=== PATIENT | female | born 1955 | race Caucasian/White ===

== ENCOUNTER → 2016-04-22 | Outpatient (CLI) | payer BC ==
--- NOTE | 2016-04-22 11:49 | KCIC ---
Bilateral digital diagnostic mammograms with CAD: HISTORY Followup breast nodule. COMPARISON Comparison is made to previous studies dated 04/18/2015 and 04/18/2014. FINDINGS Breast density category C. The skin and nipples show no abnormalities. No abnormal lymph nodes are seen in the axilla. The breast parenchyma shows heterogeneous density. There continues to be a small nodular density in the lower inner quadrant of the left breast posteriorly which has not changed. There are no dominant masses, suspicious calcifications or architectural distortions. Benign appearing calcifications are present. IMPRESSION No definite change in the small nodular density at the 7 o'clock position of the left breast. Ultrasound to follow. BI-RADS category 0: Incomplete. Ultrasound to follow. Mammography is not 100% sensitive in detecting breast cancer. Therefore, a self breast exam and a clinical breast exam are very important. A negative mammogram does not negate a clinically suspicious finding and should not result in a delay in biopsying a clinically suspicious abnormality. Left breast ultrasound: Comparison is made to previous studies dated 04/26/2015 and 10/10/2015. Ultrasound examination of the left breast was performed with attention to the inferior breast. Small hypoechoic nodules consistent with fibrocystic type changes are again seen in the 5 o'clock, 6 o'clock and 7 o'clock positions. These all shows a slight decrease in size. There are no new cystic or solid nodules. No abnormal lymph nodes are seen in the axilla. Impression: Slight decrease in size of the small nodules in the 5 o'clock, 6 o'clock and 7 o'clock positions consistent with fibrocystic changes. Recommend routine mammographic followup. BI-RADS category 2: Probably benign. This study was interpreted with the benefit of Computerized Aided Detection (CAD). This patient's information has been entered into a reminder system for the patient to be notified with the results of this examination and a target date for her next mammograms. Electronically signed by: So Falk MD (Apr 22, 2016 11:47:45)
--- NOTE | 2016-05-14 12:03 | KCIC ---
Bilateral digital diagnostic mammograms with CAD: HISTORY Followup breast nodule. COMPARISON Comparison is made to previous studies dated 04/18/2015 and 04/18/2014. FINDINGS Breast density category C. The skin and nipples show no abnormalities. No abnormal lymph nodes are seen in the axilla. The breast parenchyma shows heterogeneous density. There continues to be a small nodular density in the lower inner quadrant of the left breast posteriorly which has not changed. There are no dominant masses, suspicious calcifications or architectural distortions. Benign appearing calcifications are present. IMPRESSION No definite change in the small nodular density at the 7 o'clock position of the left breast. Ultrasound to follow. BI-RADS category 0: Incomplete. Ultrasound to follow. Mammography is not 100% sensitive in detecting breast cancer. Therefore, a self breast exam and a clinical breast exam are very important. A negative mammogram does not negate a clinically suspicious finding and should not result in a delay in biopsying a clinically suspicious abnormality. Left breast ultrasound: Comparison is made to previous studies dated 04/26/2015 and 10/10/2015. Ultrasound examination of the left breast was performed with attention to the inferior breast. Small hypoechoic nodules consistent with fibrocystic type changes are again seen in the 5 o'clock, 6 o'clock and 7 o'clock positions. These all shows a slight decrease in size. There are no new cystic or solid nodules. No abnormal lymph nodes are seen in the axilla. Impression: Slight decrease in size of the small nodules in the 5 o'clock, 6 o'clock and 7 o 'clock positions consistent with fibrocystic changes. Recommend routine mammographic followup. BI-RADS category 2: Probably benign. This study was interpreted with the benefit of Computerized Aided Detection (CAD ). This patient's information has been entered into a reminder system for the patient to be notified with the results of this examination and a target date for her next mammograms. Electronically signed by: So Falk MD (Apr 22, 2016 11:47:45) [facility]
== END | disposition home or self-care (01) ==
LOC: KCIC MAMMO 10:02
PROVIDERS: ATTEND Physician Assistant Medical
DX: N63 Unspecified lump in breast (principal); R92.8 Other abnormal and inconclusive findings on diagnostic imaging of breast
CPT/HCPCS: 76641; G0204; 77066

== ENCOUNTER → 2017-04-23 | Outpatient (CLI) | payer BC | END | disposition home or self-care (01) | LOC: KCIC MAMMO 08:53 | DX: Z12.31 Encounter for screening mammogram for malignant neoplasm of breast (principal) | CPT/HCPCS: 77063; 77067 ==

== ENCOUNTER → 2017-09-22 | Outpatient (CLI) | payer BC | END | disposition home or self-care (01) | LOC: KCIC 08:15 | DX: M25.521 Pain in right elbow (principal) | CPT/HCPCS: 73080 ==

== ENCOUNTER → 2018-04-27 | Outpatient (CLI) | payer BC ==
--- NOTE | 2018-04-27 16:25 | KCIC ---
Bilateral digital screening mammograms with 3-D tomosynthesis: Reason for examination: Routine screening. Comparison is made to previous studies dated back to 04/18/2015. Bilateral mammograms in CC and oblique projections were obtained with 2-D imaging and 3-D tomosynthesis imaging on a Siemens Inspiration unit and reviewed on the workstation. Interpretation was made with the benefit of CAD. The skin and nipples show no abnormalities. No abnormal axillary lymph nodes are seen. The breast parenchyma is extremely dense. (Breast density: Category D.) There continues to be a circumscribed nodule medially in the 8:00 position posteriorly in the left breast which is stable. There appears however to be a nodule developing in the left breast posterior laterally at approximately the 4:00 C position which appears to measure at least 7 mm in size. In the right breast, there is a 1 cm nodular density which appears to lie approximately 12 cm posterior to the nipple at the 10:00 C position. There also appears to be nodular densities seen posterior laterally in the right breast on cc view approximately 8.2 cm posterior to the nipple measuring approximately 1 cm in size. There are no other dominant masses, suspicious calcifications or architectural distortion evident. Benign calcifications are present. Impression: Small nodular densities developing at approximately the 4:00 position posteriorly in the left breast, in the 10:00 C position posteriorly in the right breast and at approximately the 9:00 position posteriorly in the right breast. Recommend further evaluation with ultrasound. Your patient's mammogram demonstrates that she has dense breast tissue (breast density category C or D), which could hide abnormalities, and if she has other risk factors for breast cancer that have been identified, she might benefit from supplemental screening tests that may be suggested by you as her ordering physician. Dense breast tissue, in and of itself, is a relatively common condition. Therefore, this information is not provided to cause undue concern, but rather to raise your awareness and to promote discussion with your patient regarding the presence of other risk factors, in addition to dense breast tissue. Your patient's mammography results will be sent to her. BI-RAD Category 0: Incomplete. Needs additional imaging evaluation. "Our facility is accredited by the [employer] Mammography Program." This patient's information has been entered into a reminder system for the patient to be notified with the results of her examination and a target date for the next mammogram. Electronically signed by: Padma Falk MD (04/27/2018 4:22 PM) [id number]
== END | disposition home or self-care (01) ==
LOC: KCIC MAMMO 12:15
PROVIDERS: ATTEND Family Medicine
DX: Z12.31 Encounter for screening mammogram for malignant neoplasm of breast (principal)
CPT/HCPCS: 77063; 77067

== ENCOUNTER → 2018-05-02 | Outpatient (CLI) | payer BC ==
--- NOTE | 2018-05-02 09:45 | KCIC ---
Bilateral breast ultrasound: Reason for examination: Nodular densities on screening mammogram. Bilateral whole breast ultrasound including evaluation of all 4 quadrants and the retroareolar and axillary regions of both breasts was performed. In the right breast, there is a small 2.8 mm fibrocystic type lesion in the 10:00 position 4 cm from the nipple. In the 10:00 position 10 cm from the nipple, there is a hypoechoic lesion with posterior shadowing measuring 1.1 cm in greatest dimension. Further evaluation with ultrasound-guided biopsy is recommended. No abnormal appearing lymph nodes are seen in the right axilla. In the left breast at the 3:30 position 8 cm from the nipple, there is a 7.1 mm cystic lesion in a 5.4 mm fibrocystic type lesion present. No other cystic or solid lesions are seen. No abnormal appearing lymph nodes are seen in the axilla. IMPRESSION: 1.1 cm hypoechoic lesion with posterior shadowing at the 10:00 position 10 cm from the nipple. Recommend ultrasound-guided biopsy. Additional small fibrocystic lesions seen bilaterally. Recommend 6 month follow-up. BI-RADS Category 4: Suspicious. These findings have been discussed with the patient and the patient's physician, Dr. Donald Barry, via his medical records director, Davon, was notified about these findings by myself on 05/02/2018 at 9:40 AM. "Our facility is accredited by the [employer] Mammography Program." This patient's information has been entered into a reminder system for the patient to be notified with the results of her examination and a target date for the next mammogram. Electronically signed by: Padma Falk MD (05/02/2018 9:42 AM) [facility]
== END | disposition home or self-care (01) ==
LOC: KCIC US 08:34
PROVIDERS: ATTEND Family Medicine
DX: N64.89 Other specified disorders of breast (principal)
CPT/HCPCS: 76641

== ENCOUNTER → 2018-05-05 | Outpatient (CLI) | payer BC ==
--- NOTE | 2018-05-05 11:40 | RAD ---
ULTRASOUND-GUIDED CORE BIOPSY OF THE RIGHT BREAST Indications: Area of acoustic shadowing of the 10:00 position of the right breast 10 cm from the nipple seen on sonogram of the right breast dated May 02, 2018. Procedure: Sonography of the right breast was performed which redemonstrates the area of acoustic shadowing measuring about 1 cm in size at the 10:00 position 10 cm from the nipple. The procedure and possible complications including bleeding and infection were explained. The patient provided both verbal and written consent. An appropriate skin bryan was made on the right breast using ultrasound guidance. A timeout was performed which confirmed the name of the patient and date of and the type of procedure and the side of the procedure. Allergies to medications were reviewed. The patient's questions were answered. The right breast was prepped and draped in the usual sterile fashion. A total of 6 cc of 1% lidocaine was utilized for local anesthesia. Using sterile technique and ultrasound guidance, a small skin neck was made and a 13-gauge Bard needle cannula was directed to the edge of the nodule. A total of 6 14-gauge core biopsies were obtained coaxially through the needle cannula using ultrasound guidance. Sonographic spot images were obtained. Following this, a breast biopsy marker clip was placed coaxially along the edge of the nodule using ultrasound guidance. A sonographic spot image demonstrates the biopsy clip adjacent to the nodule. Manual pressure was applied for 5 minutes and hemostasis was deemed adequate. Sterile Band-Aid was applied to the biopsy site. The patient tolerated the procedure well without complication. The biopsy samples were placed into formalin and sent to pathology for further evaluation. Follow-up will be with the patient's referring physician. IMPRESSION: Ultrasound-guided core biopsy sampling of the nodule of the right breast was performed without complication. Pathology results pending. DIAGNOSTIC RIGHT-SIDED MAMMOGRAPHY Indications: Postbiopsy after placement of a marker. 2-D digital mammography of both breasts were performed in the CC and MLO projections. Findings: The biopsy marker is seen within the posterior upper outer quadrant of the right breast. It is located 13 cm from the nipple in the CC projection and 12 cm from the nipple in the MLO projection. IMPRESSION: Placement of biopsy marker within the upper-outer quadrant of the right breast. In retrospect, there is a small nodular density present here in the MLO view on the mammogram dated April 27, 2018.
--- NOTE | 2018-05-06 17:10 | PATHOLOGY ---
[facility] Accession Number: [id number] . 01 Material submitted: . RIGHT BREAST, 10:00, 10CFN . 01 Clinical history: . Right breast mass . 02 Diagnosis: Breast tissue, right breast 10:00 needle biopsies: - Stromal fibrosis with focal cystic change and apocrine metaplasia. . (JPM:mml; 05/06/2018) [facility]/05/06/2018 . 02 Comment: Sections of the right breast 10:00 needle biopsy reveal segments of breast tissue, primarily showing stromal fibrosis. There is a small focus of cystic change and apocrine metaplasia. There is also a small fragment of skeletal muscle tissue present in the biopsy. There is no evidence of malignancy. . (JPM:mml; 05/06/2018) . 02 Electronically signed: . Alli Lopez MD, Pathologist NPI- [id number] . 01 Gross description: . Received in formalin labeled "Deep Cuevas, right breast," and additionally labeled on the requisition as "10:00 10 cFN," are multiple needle cores of yellow-sierra fibrofatty tissue measuring 1.5 x 0.6 x 0.1 cm in aggregate dimensions. The tissue is submitted in its entirety in cassette A1 through A3. The cold ischemic time is 5 minutes. The total formalin fixation time is 10 hours and 50 minutes. (TSD; 05/05/2018) TOB/TOB . 02 Microscopic: . . . 02 Pathologist provided ICD-10: N60.31, N60.81 . 02 CPT . 833155 Specimen Comment: A courtesy copy of this report has been sent to Specimen Comment: [phone], , . Specimen Comment: Report sent to ,DR COMBS / DR MOTA Specimen Comment: A duplicate report has been generated due to demographic updates. Performed at: 01 [facility] [id number] [facility] [address], [place] [id number] MD Arun Medina MD Phone: [phone] [facility]formed at: [facility] [address] [place] [id number] MD Alli Lopez MD Phone: [phone]
== END | disposition home or self-care (01) ==
LOC: US 12:12
PROVIDERS: ATTEND Surgery
DX: N60.31 Fibrosclerosis of right breast (principal); N60.81 Other benign mammary dysplasias of right breast; Z88.8 Allergy status to other drugs, medicaments and biological substances; Z87.442 Personal history of urinary calculi; Z98.890 Other specified postprocedural states
CPT/HCPCS: 19083; 77065; 88305; C1713; 19081; 76942

== ENCOUNTER → 2018-09-16 | Outpatient (CLI) | payer BC ==
--- NOTE | 2018-09-16 13:02 | KCIC ---
MR of the left elbow HISTORY: Lateral epicondylitis. Pain for over one year. FINDINGS: Biceps and brachialis tendons are intact. Triceps tendon intact. Thickening of the common extensor tendon with a partial tear, involving approximately 50-70% of the fibers. Thickening of the proximal lateral collateral ligament complex without disruption. Common flexor tendon intact. Ulnar collateral ligament intact. No bone destruction or acute fracture. Small joint effusion. Ulnar nerve unremarkable. Mild soft tissue edema along the posterolateral elbow, and posterior to the common extensor tendon attachment. IMPRESSION: Common extensor tendinosis with a high-grade tear. Proximal lateral collateral ligament complex scarring or degeneration. Electronically signed by: Olegario Navarro MD (09/16/2018 1:00 PM) [facility]
== END | disposition home or self-care (01) ==
LOC: KCIC MRI 11:25
PROVIDERS: ATTEND Orthopaedic Surgery
DX: S56.511A Strain of other extensor muscle, fascia and tendon at forearm level, right arm, initial encounter (principal); M25.421 Effusion, right elbow; M77.11 Lateral epicondylitis, right elbow; X58.XXXA Exposure to other specified factors, initial encounter; Y93.89 Activity, other specified; Y92.89 Other specified places as the place of occurrence of the external cause; Y99.8 Other external cause status
CPT/HCPCS: 73221

== ENCOUNTER → 2018-10-28 | Outpatient (CLI) | payer BC ==
--- NOTE | 2018-10-28 09:53 | KCIC ---
Right breast diagnostic digital mammograms with 3-D tomosynthesis: Reason for examination: Follow-up biopsy. Comparison is made to previous studies dated back to 04/23/2017. Right breast mammograms in CC and oblique projections were obtained with 2-D imaging and 3-D tomosynthesis imaging on a Siemens Inspiration unit and reviewed on the workstation. Interpretation was made with the benefit of CAD. The skin and nipple show no abnormalities. No abnormal axillary lymph nodes are seen. The breast parenchyma is extremely dense. (Breast density: Category D.) There is a biopsy clip present at the 10:00 C position and the area of nodularity appears to be less prominent. There is however some new nodularity suggested medially at approximately the 3:00 B position. This will be further evaluated with ultrasound. There are no other dominant masses, suspicious calcifications or architectural distortion. Benign calcifications are present. Impression: Postbiopsy changes at the 10:00 C position of the right breast. New nodularity suggested at the 3:00 B position. Ultrasound to follow. Your patient's mammogram demonstrates that she has dense breast tissue (breast density category C or D), which could hide abnormalities, and if she has other risk factors for breast cancer that have been identified, she might benefit from supplemental screening tests that may be suggested by you as her ordering physician. Dense breast tissue, in and of itself, is a relatively common condition. Therefore, this information is not provided to cause undue concern, but rather to raise your awareness and to promote discussion with your patient regarding the presence of other risk factors, in addition to dense breast tissue. Your patient's mammography results will be sent to her. BI-RAD Category 0: Incomplete. Needs additional imaging evaluation. Right breast ultrasound: Comparison is made to previous study dated 05/02/2018. Right whole breast ultrasound including evaluation of all 4 quadrants and the retroareolar and axillary regions of the right breast was performed. In the 10:00 position 10 cm from the nipple, there continues to be hypoechoic lesion measuring 8.3 x 6.4 mm in size which corresponds to the area of previous biopsy and does not show significant change in size but may be related to post biopsy changes. There also continues to be a small 3 mm nodule consistent with some focal fibrocystic change at the 10:00 position 4 cm from the nipple shows no significant change. Medially at the 2:00 position 5 cm from the nipple, there also appears to be a small 1.2 x 1.1 cm hypoechoic lesion in parallel orientation which may represent a small fibroadenoma or fibrocystic lesion. No other cystic or solid lesions are seen. No abnormal appearing lymph nodes are seen in the axilla. IMPRESSION: Continued presence of the small nodular lesion at the 10:00 position 10 cm from the nipple corresponding to previous biopsy site. This does not appear to be significantly smaller but may be related to postbiopsy changes. There also appears to be a small nodule in the 2:00 position 5 cm from the nipple measuring 1.2 cm in size which may represent fibroadenoma. Recommend continued follow-up with ultrasound in 6 months at the time of bilateral mammograms. BI-RADS Category 3: Probably Benign. "Our facility is accredited by the [employer] Mammography Program." This patient's information has been entered into a reminder system for the patient to be notified with the results of her examination and a target date for the next mammogram. Electronically signed by: Padma Falk MD (10/28/2018 9:50 AM) [facility]
== END | disposition home or self-care (01) ==
LOC: KCIC MAMMO 08:01
PROVIDERS: ATTEND Family Medicine
DX: N64.89 Other specified disorders of breast (principal)
CPT/HCPCS: 76641; 77065; G0279; 77061

== ENCOUNTER → 2019-02-15 | Outpatient (CLI) | payer BC ==
[~2019-02-15] MED LIST: 0.9 % SODIUM CHLORIDE 10 ML DISP.SYRIN. ID ONE; CELE100C PO; GADOTERATE 5 MMOL/10ML VIAL. INT ART ONE; IOHEXOL 300 MG/ML 50 ML VIAL. INT ART ONE; LIDOCAINE 1% Multi-Dose 20 ML VIAL. ID ONE
--- NOTE | 2019-02-15 13:34 | KCIC ---
SHOULDER ARTHROGRAM RIGHT History: Right shoulder impingement pain subacromial bursitis. Pain. PROCEDURE: The risks, alternatives, benefits of the procedure discussed with the patient. Written informed consent is obtained. A timeout is performed. Skin site was chosen under fluoroscopy. This area is prepped and draped in normal sterile fashion. 1% Lidocaine is used for superficial and deep local anesthesia. Using intermittent fluoroscopy, a 22-gauge spinal needle is advanced into the joint space. Position is confirmed with a small amount contrast injection. Then a dilute gadolinium solution is instilled, total volume approximately 12 mL. The needle was removed. Hemostasis is achieved. The patient tolerated the procedure well. There is no immediate complication. Patient was transferred to MRI. Total fluoroscopy time 62 seconds. 1 fluoroscopic spot images. IMPRESSION: 1. Fluoroscopically guided right shoulder prior to MRI. Electronically signed by: Oswaldo Mcmullen DO (02/15/2019 1:31 PM) [facility]
--- NOTE | 2019-02-15 16:41 | KCIC ---
MRI arthrogram of the right shoulder HISTORY: Right shoulder impingement, pain. Subacromial bursitis. TECHNIQUE: Routine 4 plane sequences are obtained. FINDINGS: Acromioclavicular joint is mildly degenerative. Deep articular side rotator cuff tear of the anterior supraspinatus tendon measures 18 mm AP by 18 mm wide. Thin intact layer of overlying bursal tissue fibers. No evidence of infraspinatus tendon tear. Subscapularis tendinosis. No significant subdeltoid bursal fluid or contrast accumulation. Small defect at the superior labrum, best seen on the Aber sequence, compatible with a tear. Other labrum appears intact. Biceps tendon intact. No acute fracture. No aggressive bone destruction. IMPRESSION: 1. Deep articular side rotator cuff tear of the anterior supraspinatus tendon. Rotator cuff tendinosis. 2. Small superior labral tear. Electronically signed by: Olegario Navarro MD (02/15/2019 4:38 PM) [facility]
== END | disposition home or self-care (01) ==
LOC: KCIC 10:37
PROVIDERS: ATTEND Orthopaedic Surgery Hand Surgery
DX: M75.41 Impingement syndrome of right shoulder (principal); M75.51 Bursitis of right shoulder
CPT/HCPCS: 23350; 73222; 77002; A9575; Q9967; 73040

== ENCOUNTER → 2019-04-17 | Outpatient (CLI) | payer BC ==
[~2019-04-17] MED LIST changes: -0.9 % SODIUM CHLORIDE 10 ML DISP.SYRIN. ID ONE; -GADOTERATE 5 MMOL/10ML VIAL. INT ART ONE; -IOHEXOL 300 MG/ML 50 ML VIAL. INT ART ONE; -LIDOCAINE 1% Multi-Dose 20 ML VIAL. ID ONE
--- NOTE | 2019-04-17 16:00 | KCIC ---
Bilateral diagnostic digital mammograms with 3-D tomosynthesis: Reason for examination: Follow-up right breast biopsy. Comparison is made to previous studies dated back to 04/22/2016. Bilateral mammograms in CC and oblique projections were obtained with 2-D imaging and 3-D tomosynthesis imaging on a Siemens Inspiration unit and reviewed on the workstation. Interpretation was made with the benefit of CAD. The skin and nipples show no abnormalities. No abnormal axillary lymph nodes are seen. The breast parenchyma is extremely dense. (Breast density: Category D.) There is a residual nodule with biopsy clip at the 10:00 C position of the right breast. There continue to be nodular parenchymal asymmetries bilaterally. There continues be a small nodule in the inferior left breast seen on oblique view which is stable. There are no new dominant masses, suspicious calcifications or architectural distortion. Benign calcifications are present. Impression: Dense breast parenchyma with postbiopsy changes at the 10:00 C position of the right breast. No other interval change is evident. Ultrasound to follow. Your patient's mammogram demonstrates that she has dense breast tissue (breast density category C or D), which could hide abnormalities, and if she has other risk factors for breast cancer that have been identified, she might benefit from supplemental screening tests that may be suggested by you as her ordering physician. Dense breast tissue, in and of itself, is a relatively common condition. Therefore, this information is not provided to cause undue concern, but rather to raise your awareness and to promote discussion with your patient regarding the presence of other risk factors, in addition to dense breast tissue. Your patient's mammography results will be sent to her. BI-RAD Category 0: Incomplete. Needs additional imaging evaluation. Right breast ultrasound: Comparison is made to previous study dated 10/28/2018. Ultrasound examination of the right breast and axilla was performed. There are postop changes at the 10:00 position 10 cm from the nipple with biopsy clip evident. There is a small 2.8 mm hypoechoic fibrocystic type lesion at the 10:00 position 4 cm from the nipple which shows no significant change. There also continues to be a small hypoechoic lesion in parallel orientation measuring 6.7 mm in size at the 2:00 position 5 cm from the nipple which shows an apparent decrease in size. No new cystic or solid nodules are seen. No abnormal appearing lymph nodes are seen in the axilla. IMPRESSION: Postbiopsy changes at the 10:00 position 10 cm from the nipple. Fibrocystic lesions at the 10:00 position 4 cm from the nipple and at the 2:00 position 5 cm from the nipple. No suspicious lesion seen. Recommend routine mammographic follow-up. BI-RADS Category 2: Benign. "Our facility is accredited by the [employer] Mammography Program." This patient's information has been entered into a reminder system for the patient to be notified with the results of her examination and a target date for the next mammogram. Electronically signed by: Padma Falk MD (04/17/2019 3:57 PM) [email or web address]
== END | disposition home or self-care (01) ==
LOC: KCIC MAMMO 12:47
PROVIDERS: ATTEND Obstetrics & Gynecology
DX: R92.2 Inconclusive mammogram (principal); N63.11 Unspecified lump in the right breast, upper outer quadrant; N63.20 Unspecified lump in the left breast, unspecified quadrant
CPT/HCPCS: 76641; 77066; G0279; 77062

== ENCOUNTER → 2020-04-19 | Outpatient (CLI) | payer BC ==
--- NOTE | 2020-04-19 11:32 | KCIC ---
EXAM: Bilateral digital screening mammogram with tomosynthesis. HISTORY: 64-year-old female presents for screening mammography. TECHNIQUE: Full-field digital craniocaudal and mediolateral oblique 2D and 3D tomosynthesis images of both breasts are obtained for evaluation. Computer aided detection was applied. COMPARISON: 04/17/2019 and 04/27/2018 BREAST PARENCHYMAL DENSITY: Level D - Extremely dense. FINDINGS: There is no new suspicious mass, microcalcification or region of architectural distortion. There are stable areas of asymmetry and nodularity within both breasts. There are benign calcificatio ns. IMPRESSION: BI-RADS Category 2: Benign finding(s). RECOMMENDATION: Annual mammography is recommended. If your mammogram demonstrates that you have dense breast tissue, which could hide abnormalities, and if you have other risk factors for breast cancer that have been identified, you might benefit from s upplemental screening tests that may be suggested by your ordering physician. Dense breast tissue, i n and of itself, is a relatively common condition. This information is not provided to cause undue c oncern, but rather to raise your awareness and to promote discussion with your physician regarding th e presence of other risk factors, in addition to dense breast tissue. A report of your mammography re sults will be sent to you and your physician. You should contact your physician if you have any ques tions or concerns regarding this report. Mammography is a sensitive method for finding small breast cancers, but it does not detect them all a nd is not a substitute for careful clinical examination. A negative mammogram does not negate a clin ically suspicious finding and should not result in delay in biopsying a clinically suspicious abnorma lity. PQRS compliance statement - Patient information was entered into a reminder system with a target due date for the next mammogram. "Our facility is accredited by the [employer] Mammography [employer]." Electronically signed by: Carol Ovalles MD (04/19/2020 11:30 AM) [id number]
== END ==
LOC: KCIC MAMMO 09:07
PROVIDERS: ATTEND Family Medicine
DX: Z12.31 Encounter for screening mammogram for malignant neoplasm of breast (principal); N64.89 Other specified disorders of breast
CPT/HCPCS: 77063; 77067

== ENCOUNTER → 2020-11-04 | Outpatient (CLI) | payer BC ==
--- NOTE | 2020-11-04 09:56 | KCIC ---
EXAM: DUAL ENERGY X-RAY ABSORPTIOMETRY (DEXA). HISTORY: Postmenopausal screening. FINDINGS: The lowest measured T-score is -1.2 in the left hip, based on a bone mineral density of 0.7 99 g/cm^2. Refer to the worksheets for full detail. There has been a 6.8 percent decrease in density of the left hip and 1.8 percent decrease in density of the lumbar spine compared to a study performed 01/26/2011. IMPRESSION: 1. Low bone mass. Bone mineral density yields a T-score between -1.0 and -2.5. Fracture risk is incre ased. 2. FRAX report: Not calculated. METHODOLOGY: Dual energy x-ray absorptiometry was performed to measure bone mineral density. The foll owing analysis is based on the 2019 Official Positions of the International Society for Clinical Dens itometry: Measurements of the hips and the average of L1-L4 are preferred. When the spine and/or hip cannot be feasibly measured or interpreted, or in the setting of hyperparathyroidism, distal radial bone minera l density may be measured. The lumbar spine T-score is based on the average bone mineral density of L1-L4. In the setting of art ifact or anatomic abnormality, some lumbar levels may be excluded, and the remaining levels used for calculation. A single lumbar level is not used for diagnosis, and if only a single level is available for assessment, another anatomic site will be used to assign a diagnosis. The hip T-score is based on the bone mineral density measurement of the femoral neck or total proxima l femur of either side, whichever is lowest. Bilateral mean values are not used for diagnosis. The forearm T-score is derived from 33% of the distal radius of the nondominant forearm. Electronically signed by: Carol Ovalles MD (11/04/2020 9:53 AM) [id number]
== END ==
LOC: KCIC DEXA 07:56
PROVIDERS: ATTEND Family Medicine
DX: M85.88 Other specified disorders of bone density and structure, other site (principal)
CPT/HCPCS: 77080